=== PATIENT | female | born 1960 | race African-American/Black ===

== ENCOUNTER 2021-05-10 14:26 | Emergency (ER) | payer OTHER ==
[~2021-05-10] VITALS: Ht 172.7 cm; Wt 100.0 kg
[2021-05-10] MEDS ORDERED: HYDROCODONE/ACETAMINOPHEN 5/325MG TABLET PO ONE (15:00)
[2021-05-10 16:12] VITALS: BP 153/69
== END 2021-05-10 16:13 ==
LOC: ER 14:26
DX: R20.2 Paresthesia of skin (principal); I10 Essential (primary) hypertension
CPT/HCPCS: 29125; 73090; 99283; A4565